=== PATIENT | female | born 1965 | race Caucasian/White ===

== ENCOUNTER → 2019-08-12 | Outpatient (CLI) | payer OTHER ==
--- NOTE | 2019-08-12 09:02 | RAD ---
EXAM DESCRIPTION: Foot,Right 3 Views CLINICAL HISTORY: pain in right foot COMPARISON: None. TECHNIQUE: 3 views right FINDINGS: A hallux valgus deformity is observed. A spiral fracture of the shaft of the fifth metatarsal is observed. Large plantar calcaneal spur is noted. No further fracturing is detected. IMPRESSION: 1. A spiral minimally distracted fracture of the shaft of the fifth metatarsal is observed. 2. Hallux valgus Electronically signed by: Jamir Morejon MD 08/12/2019 9:01 AM CDT
== END ==
LOC: RAD 08:32
PROVIDERS: ATTEND Orthopaedic Surgery
DX: S92.354A Nondisplaced fracture of fifth metatarsal bone, right foot, initial encounter for closed fracture (principal); M20.11 Hallux valgus (acquired), right foot